=== PATIENT | male | born 1995 | race Caucasian/White ===

== ENCOUNTER 2021-04-17 01:09 | Emergency (ER) | payer OTHER ==
[~2021-04-17] VITALS: Ht 188 cm; Wt 90.7 kg
[2021-04-17 01:10] VITALS: BP 145/75
[2021-04-17] MEDS ORDERED: LIDOCAINE 1%-EPI 1:100,000 20 ML VIAL ONE (01:21)
[2021-04-17] MEDS ORDERED: SODIUM BICARBONATE 5 ML VIAL ONE (01:24)
[2021-04-17] MEDS ORDERED: CEPH500C2 PO (01:25)
[2021-04-17] MEDS ORDERED: SODIUM BICARBONATE 5 ML VIAL MC ONE (01:30)
[2021-04-17] MEDS ORDERED: LIDOCAINE 1%-EPI 1:100,000 20 ML VIAL TP ONE (01:30)
[2021-04-17] MEDS ORDERED: CEPHALEXIN MONOHYDRATE 500 MG CAPSULE PO ONE ×2 (01:30→01:40)
== END 2021-04-17 01:47 | disposition home or self-care (01) ==
LOC: ER 01:12
DX: S51.012A Laceration without foreign body of left elbow, initial encounter (principal); W22.8XXA Striking against or struck by other objects, initial encounter; Y93.89 Activity, other specified; Y92.89 Other specified places as the place of occurrence of the external cause; Y99.8 Other external cause status
CPT/HCPCS: 12001; 99283; J3490 ×2